=== PATIENT | female | born 1995 | race Caucasian/White ===

== ENCOUNTER 2021-04-30 05:44 | Inpatient (IN) ==
[2021-04-30] MEDS ORDERED: ONDANSETRON 4 MG/2 ML VIAL IV PRN (05:56)
[2021-04-30] MEDS ORDERED: BUTORPHANOL 2 MG/ML VIAL IV PRN (05:56)
[2021-04-30] MEDS ORDERED: OXYTOCIN/LR 20 UNIT/1,000 ML BAG IV SCH (06:00)
[2021-04-30] MEDS: LACTATED RINGERS 1,000 ML IV SCH ×3 (06:15→20:41)
[2021-04-30 06:22] LABS: Basophils % 0.2 % (0.0-0.8); Eosinophils # 0.1 10*3/uL (0.0-0.87); Eosinophils % 1.1 % (0.00-10.9); Hematocrit 36.1 VOL% (35.7-47.0); Hemoglobin 11.5 GM/DL (12.0-16.0); Immature Granulocytes % 1.4 %; Immature Granulocytes Absolute 0.13 #; Lymphocytes # 2.4 10*3/uL (1.4-4.0); Lymphocytes % 25.8 % (21.3-54.2); Mean Corpuscular HGB Conc 31.9 GM/DL (32-36); Mean Corpuscular Volume 94.8 FL (87-102); Mean Platelet Volume 10.2 FL (9.6-12.0); Monocytes % 6.7 % (1.7-12.7); Neutrophils % 64.8 % (38.7-73.9); Platelet Count 226 T/CUMM (130-400); Red Blood Count 3.81 MC/CUMM (3.8-5.5); Red Cell Distribution Width 13.8 % (9.3-17.3); White Blood Count 9.1 T/CUMM (4-12)
[2021-04-30] MEDS ORDERED: AMPICILLIN INJ 2,000 MG in SODIUM CHLORIDE 0.9% 100 ML IV ONE (06:22)
[2021-04-30 06:51] LABS: Alanine Aminotransferase 15 U/L (13-56); Albumin 2.5 G/DL (3.4-5.0); Alkaline Phosphatase 161 U/L (45-117); Aspartate Amino Transferase 12 U/L (0-37); Bilirubin,Total < 0.39 MG/DL (0.20-1.00); Blood Urea Nitrogen 6 MG/DL (7-18); Calcium 8.4 MG/DL (8.5-10.1); Carbon Dioxide 21 MMOL/L (21-32); Estimated Glom Filtration Rate 141 ML/MIN; Glucose 118 MG/DL (74-106); Osmolality,Calculated 277.4 MOS/KG (273-304); Potassium 3.6 MMOL/L (3.5-5.1); Sodium 140 MMOL/L (136-145); Total Protein 6.2 G/DL (6.4-8.2)
[2021-04-30] MEDS: AMPICILLIN INJ 1,000 MG in SODIUM CHLORIDE 0.9% 100 ML IV SCH ×4 (10:27→23:46)
[2021-04-30] MEDS ORDERED: ePHEDrine 50 MG/ML VIAL IV PRN (19:19)
[2021-04-30] MEDS ORDERED: NALOXONE 0.4 MG/ML VIAL IV PRN (19:19)
[2021-04-30] MEDS ORDERED: hydrOXYzine HCL 25 MG/1 ML VIAL IM PRN (19:19)
[2021-04-30] MEDS ORDERED: FAMOTIDINE 20 MG/2 ML VIAL IV ONE (19:19)
[2021-04-30] MEDS ORDERED: CITRIC ACID/SODIUM CITRATE 30 ML UDCUP PO ONE (19:19)
[2021-04-30] MEDS ORDERED: LACTATED RINGERS 1,000 ML IV ONE (19:19)
[2021-04-30] MEDS ORDERED: diphenhydrAMINE 50 MG/1 ML VIAL IV PRN ×2 (19:19)
[2021-04-30] MEDS ORDERED: PROMETHAZINE 25 MG/1 ML VIAL IM ONE (19:19)
[2021-04-30] MEDS ORDERED: fentaNYL 2 MCG/ROPIV 0.2% EPID 100 ML EPIDURAL SCH (19:30)
[2021-04-30 21:51] LABS: Bilirubin,Urine Negative (Negative); Blood, Urine Negative (Negative); Glucose,Urine (UA) Negative (Negative); Ketones,Urine 20 mg/dL (Negative); Mucus,Urine Occasional /LPF (Occasional); Nitrite,Urine Negative (Negative); Protein,Urine Negative; RBC,Urine 2 /HPF (0-4); Urine Appearance CLEAR (Clear); Urine Color Yellow (Yellow); Urine Specific Gravity 1.018 (1.001-1.035); Urine Urobilinogen < 2.0 EU/DL (0.2-1.0)
[2021-04-30] MEDS ORDERED: ACETAMINOPHEN 500 MG TABLET PO ONE (23:50)
[2021-05-01] MEDS ORDERED: TRANEXAMIC ACID 1,000 MG/10 ML VIAL ONE (00:51)
[2021-05-01] MEDS ORDERED: miSOPROStoL 200 MCG TABLET ONE (00:51)
[2021-05-01] MEDS ORDERED: CARBOPROST TROMETHAMINE 250 MCG/ML AMP IM ONE (00:52)
[2021-05-01] MEDS ORDERED: METHYLERGONOVINE 0.2 MG/1 ML AMP ONE (00:52)
[2021-05-01] MEDS ORDERED: miSOPROStoL 200 MCG TABLET VAG ONE (03:29)
[2021-05-01 03:38] LABS: Cord Arterial Blood HCO3 21.2 MMOL/L; Cord Venous Blood HCO3 21.3 MMOL/L; Cord Venous Blood PCO2 34.1 MMHG; Cord Venous Blood PO2 33.2 MMHG
[2021-05-01] MEDS ORDERED: oxyCODONE/ACETAMINOPHEN 5-325 MG TABLET PO PRN (04:05)
[2021-05-01] MEDS: oxyCODONE/ACETAMINOPHEN 5-325 MG TABLET PO PRN ×3 (04:35→22:35)
[2021-05-01] MEDS: IBUPROFEN 800 MG TABLET PO PRN ×3 (04:35→22:33)
[2021-05-01] MEDS ORDERED: OXYTOCIN/LR 20 UNIT/1,000 ML BAG IV ONE (05:27)
[2021-05-01] MEDS: DOCUSATE SODIUM 100 MG CAPSULE PO SCH (20:33)
[2021-05-02 05:58] LABS: Basophils % 0.3 % (0.0-0.8); Eosinophils # 0.1 10*3/uL (0.0-0.87); Eosinophils % 1.4 % (0.00-10.9); Hematocrit 29.2 VOL% (35.7-47.0); Hemoglobin 9.4 GM/DL (12.0-16.0); Immature Granulocytes % 0.9 %; Immature Granulocytes Absolute 0.09 #; Lymphocytes # 2.9 10*3/uL (1.4-4.0); Lymphocytes % 29.5 % (21.3-54.2); Mean Corpuscular HGB Conc 32.2 GM/DL (32-36); Mean Corpuscular Volume 94.2 FL (87-102); Mean Platelet Volume 10.7 FL (9.6-12.0); Monocytes % 7.1 % (1.7-12.7); Neutrophils % 60.8 % (38.7-73.9); Platelet Count 186 T/CUMM (130-400); Red Cell Distribution Width 14.1 % (9.3-17.3); White Blood Count 9.9 T/CUMM (4-12)
[2021-05-02] MEDS: DOCUSATE SODIUM 100 MG CAPSULE PO SCH (08:03)
[2021-05-02 12:01] VITALS: BP 98/64
[2021-05-02] MEDS: IBUPROFEN 800 MG TABLET PO PRN (13:48)
[2021-05-02] MEDS ORDERED: MEASLES/MUMPS/RUBELLA VACCINE 0.5 ML VIAL SUBCUT ONE (13:48)
== END 2021-05-02 17:20 | disposition home or self-care (01) | DRG 807 ==
LOC: N.LD 05:44 → N.OB 05-01 09:25
PROVIDERS: ADMIT Obstetrics & Gynecology; ATTEND Obstetrics & Gynecology